=== PATIENT | female | born 1970 | race Caucasian/White ===

== ENCOUNTER 2023-11-18 10:37 | Emergency (ER) | payer MEDICAID, OTHER ==
[~2023-11-18] VITALS: Ht 167.6 cm; Wt 65.9 kg
[2023-11-18 11:12] LABS: Basophils # (auto) 0 10 ^3/uL (0-0.2); Basophils % (auto) 0.5 % (0.0-2.0); Eosinophils # (auto) 0.1 10 ^3/uL (0-0.8); Eosinophils % (auto) 1.1 % (0.0-7.0); Hematocrit 42.7 % (36.0-46.0); Hemoglobin 13.5 g/dL (12.2-16.2); Lymphocytes % (auto) 16.5 % (10.0-50.0); Mean Corpuscular Hemoglobin 24.8 pg (28.0-32.0); Mean Corpuscular Hgb Conc. 31.6 g/dL (32.0-36.0); Mean Corpuscular Volume 78.4 fL (80.0-100.0); Monocytes # (auto) 0.3 10 ^3/uL (0-1.3); Monocytes % (auto) 4.9 % (0.0-12.0); Neutrophils # (auto) 4.8 10 ^3/uL (1.6-8.6); Red Blood Cells 5.44 10^6/uL (4.0-5.20); Red Cell Distribution Width 14.8 % (11.8-14.3); White Blood Cell 6.3 10^3/uL (4.4-10.8)
[2023-11-18 11:27] LABS: Alanine Aminotransferase 22 U/L (7-40); Albumin 4.3 g/dL (3.2-4.8); Alkaline Phosphatase 112 U/L (46-116); Anion Gap 3 (5-15); Aspartate Aminotransferase 22 U/L (13-40); BUN/Creatinine Ratio 22.7 (10.0-20.0); Blood Urea Nitrogen 15 mg/dL (9-23); Calcium 9.6 mg/dL (8.7-10.4); Carbon Dioxide 28 mmol/L (20-30); Chloride 107 mmol/L (98-107); Glucose 135 mg/dL (74-106); Magnesium 2.1 mg/dL (1.6-2.6); Potassium 3.3 mmol/L (3.5-5.1); Sodium 138 mmol/L (136-145); Total Protein 6.6 g/dL (5.7-8.2)
[2023-11-18 11:29] LABS: INR 1.12 (0.9-1.15); Partial Thromboplastin Time 30.1 SEC (24.5-34.5); Prothrombin Time 11.7 sec (9.3-11.8)
[2023-11-18 11:33] LABS: Acetaminophen < 2.0 UG/ML (10.0-20.0)
[2023-11-18 11:34] LABS: Salicylate < 3.0 mg/dL (2.8-20.0)
[2023-11-18] MEDS: cloNIDine HCL 0.1 MG TAB PO ONE ×2 (11:45→20:58)
[2023-11-18 14:51] LABS: Urine Bacteria NONE SEEN /hpf (None Seen); Urine Blood 1+ /uL (Negative); Urine Clarity CLOUDY (Clear); Urine Color Yellow (Yellow); Urine Mucus FEW (None Seen); Urine Protein, UAD TRACE (Negative); Urine Specific Gravity 1.019 (1.001-1.035); Urine Urobilinogen Normal (Negative); Urine WBC 1642 /hpf (0 - 5); Urine WBC Clumps PRESENT /hpf (None Seen)
[2023-11-18 14:59] LABS: Amphetamine Screen, Urine Pos (NEGATIVE); Barbiturate Scree,Urine Neg (NEGATIVE); Benzodiazephine Screen, Urine Neg (NEGATIVE); Cannabinoid Screen, Urine Pos (NEGATIVE); Cocaine Screen, Urine Neg (NEGATIVE); Opiate Scree,Urine Neg (NEGATIVE); Phencyclidine Screen, Urine Neg (NEGATIVE)
[2023-11-18] MEDS: CEPHALEXIN 250 MG CAP PO ONE (17:17)
[2023-11-18 17:43] VITALS: PULSE 68; RESP 18; O2SAT 92
[2023-11-18 20:45] VITALS: PULSE 99; RESP 11; O2SAT 98
[2023-11-19] MEDS: IBUPROFEN 600 MG TAB PO ONE (01:14)
[2023-11-19] MEDS: ACETAMINOPHEN 325 MG TAB PO ONE (01:37)
[2023-11-19 04:00] VITALS: PULSE 71
[2023-11-19 06:49] VITALS: BP 159/98; RESP 15; O2SAT 98
== END 2023-11-19 06:55 | disposition still patient (30) ==
LOC: EDBD 10:37 → ER 10:37
DX: F32.9 Major depressive disorder, single episode, unspecified (principal); Z86.2 Personal history of diseases of the blood and blood-forming organs and certain disorders involving the immune mechanism; Z79.899 Other long term (current) drug therapy
CPT/HCPCS: 36415; 71045; 80053; 80307; 80320; 80329; 81001; 83735; 83880; 84484; 85025; 85379; 85610; 85730; 93005